=== PATIENT | male | born 1940 | race Caucasian/White ===

== ENCOUNTER → 2017-07-09 | Outpatient (CLI) | payer MEDICARE, BC ==
[~2017-07-09] MED LIST: ATOR10TA PO; TAMS0.4C2 PO; VALS40TA2 PO
[2017-07-09 09:24] LABS: BASOPHILS # (AUTO) 0.01 x10^3/uL (0-0.1); BASOPHILS % (AUTO) 0 % (0-1); EOSINOPHILS % (AUTO) 2 % (1-7); LYMPHOCYTES % (AUTO) 10 % (22-44); MD NO; MEAN CORPUSCULAR HEMOGLOBIN 31.8 pg (27.5-34.5); MEAN CORPUSCULAR VOLUME 93.8 fL (81-97); MEAN PLATELET VOLUME 7.5 fL (7.4-10.4); MONOCYTES # (AUTO) 0.58 x10^3/uL (0.2-0.8); MONOCYTES % (AUTO) 15 % (2-9); NEUTROPHILS # (AUTO) 2.83 x10^3/uL (1.8-6.8); NEUTROPHILS % (AUTO) 72 % (42-75); PLATELET COUNT 210 x10^3/uL (130-400); RED BLOOD COUNT 4.87 x10^6/uL (4.38-5.82); RED CELL DISTRIBUTION WIDTH 12.9 % (9.4-14.8)
[2017-07-09 09:25] LABS: MICROSCOPIC AUTO
[2017-07-09 09:26] LABS: CULTURE INDICATED? NO
[2017-07-09 09:33] LABS: INTERNATIONAL NORMALIZED RATIO 0.96 (0.93-1.1); PROTHROMBIN TIME 9.9 Seconds (9.6-11.5)
[2017-07-09 09:35] LABS: ANION GAP 4 mmol/L (5-15); CALCIUM 9.7 mg/dL (8.5-10.1); CHLORIDE 104 mmol/L (98-107); CREATININE 0.82 mg/dL (0.7-1.3)
== END | disposition home or self-care (01) ==
LOC: STAR 08:03
PROVIDERS: ATTEND Neurological Surgery
DX: Z01.818 Encounter for other preprocedural examination (principal); M47.12 Other spondylosis with myelopathy, cervical region; M43.5X2 Other recurrent vertebral dislocation, cervical region
CPT/HCPCS: 36415; 71020; 72052; 80048; 81001; 85025; 85610; 85730

== ENCOUNTER 2017-07-23 12:51 | Observation (INO) | payer MEDICARE, BC ==
[2017-07-09 10:30] VITALS: BP 167/93
[~2017-07-23] VITALS: Ht 182.9 cm; Wt 84.0 kg
[~2017-07-23 12:51] MED LIST changes: +BACITRACIN 50,000 UNIT ONE; +BUPIVACAINE/PF 0.5% ONE; +EPINEPHRINE 1 MG/ML, 1ML ONE; +THROMBIN 5,000 UNIT VIAL TP ONE
[2017-07-23] MEDS ORDERED: AMLO10TA2 PO (13:18)
[2017-07-23] MEDS ORDERED: LACTATED RINGERS 1,000 ML IV SCH (13:34)
[2017-07-23] MEDS ORDERED: FENTANYL PF 100 MCG/2ML ONE ×2 (18:14)
[2017-07-23] MEDS ORDERED: MIDAZOLAM 1 MG/ML, 2ML ONE (18:14)
[2017-07-23] MEDS ORDERED: CEFAZOLIN 1,000 MG ONE (19:52)
[2017-07-23] MEDS ORDERED: DEXAMETHASONE 4 MG/ML, 1ML ONE (19:52)
[2017-07-23] MEDS ORDERED: SUCCINYLCHOLINE 20 MG/ML, 10ML ONE (19:52)
[2017-07-23] MEDS ORDERED: ONDANSETRON 2MG/ML, 2ML ONE (19:52)
[2017-07-23] MEDS ORDERED: PROPOFOL 10 MG/ML, 20ML ONE (19:52)
[2017-07-23] MEDS ORDERED: ROCURONIUM 10 MG/ML,10ML ONE (19:52)
[2017-07-23] MEDS ORDERED: ONDANSETRON 2MG/ML, 2ML IVPush PRN ×2 (20:00→20:30)
[2017-07-23] MEDS ORDERED: OXYcodone 5 MG/5 ML ORAL.SOL UDC PO PRN (20:00)
[2017-07-23] MEDS ORDERED: ALBUTEROL SULFATE 2.5 MG/3 ML NPPB PRN (20:00)
[2017-07-23] MEDS ORDERED: LABETALOL 5MG/ML, 20ML IV PRN (20:00)
[2017-07-23] MEDS ORDERED: PROMETHAZINE 25 MG/ML, 1ML IV PRN (20:00)
[2017-07-23] MEDS ORDERED: DIAZEPAM 5 MG/ML, 2ML IVPush PRN (20:00)
[2017-07-23] MEDS ORDERED: ACETAMINOPHEN 325 MG TABLET PO PRN (20:00)
[2017-07-23] MEDS ORDERED: MEPERIDINE/PF 25MG/0.5ML IVPush PRN (20:00)
[2017-07-23] MEDS ORDERED: HYDROcodone/APAP 7.5-325MG/15ML UDC PO PRN (20:00)
[2017-07-23] MEDS ORDERED: FENTANYL PF 100 MCG/2ML IV PRN (20:00)
[2017-07-23] MEDS ORDERED: EPHEDRINE 50 MG/ML, 1ML IVPush PRN (20:00)
[2017-07-23] MEDS ORDERED: MIDAZOLAM 1 MG/ML, 2ML IV PRN (20:00)
[2017-07-23] MEDS ORDERED: METOPROLOL 1 MG/ML, 5ML IV PRN (20:00)
[2017-07-23] MEDS ORDERED: DIAZEPAM 5 MG TABLET PO PRN (20:30)
[2017-07-23] MEDS ORDERED: HYDROmorphone 1 MG/ML, 1ML IVPush PRN (20:30)
[2017-07-23] MEDS ORDERED: PHARMACY MAY ADJ FOR RENAL FX MC PRN (20:30)
[2017-07-23] MEDS ORDERED: OXYcodone/APAP 5/325MG TABLET PO PRN (20:30)
[2017-07-23] MEDS ORDERED: DIPHENHYDRAMINE 50 MG/ML, 1ML IVPush PRN (20:30)
[2017-07-23] MEDS ORDERED: BISACODYL 10 MG SUPP PR PRN (20:30)
[2017-07-23] MEDS ORDERED: MAGNESIUM HYDROXIDE 8%, 30ML UDC PO PRN (20:30)
[2017-07-23] MEDS ORDERED: PROMETHAZINE 25 MG/ML, 1ML IM PRN (20:30)
[2017-07-23] MEDS ORDERED: ACETAMINOPHEN 650 MG/20.3 ML UDC ONE (20:42)
[2017-07-23] MEDS ORDERED: OXYcodone 5 MG/5 ML ORAL.SOL UDC ONE (20:42)
[2017-07-23] MEDS ORDERED: hydrALAzine 20 MG/ML, 1ML ONE (20:46)
[2017-07-23] MEDS: hydrALAzine 20 MG/ML, 1ML IV PRN ×2 (20:47→21:15)
[2017-07-23] MEDS: SODIUM CHLORIDE FLUSH 10ML SYR IVF SCH (21:00)
[2017-07-23] MEDS ORDERED: ATORVASTATIN 10 MG TABLET PO SCH (21:00)
[2017-07-23] MEDS ORDERED: HYDROmorphone 2 MG/ML, 1ML ONE (21:17)
[2017-07-23] MEDS: HYDROmorphone 1 MG/ML, 1ML IV PRN ×2 (21:20→21:26)
[2017-07-23] MEDS: CEFAZOLIN PMX 1GM/50ML 50 ML IVPB SCH (22:36)
[2017-07-23] MEDS: TIZANIDINE 4MG TABLET PO SCH (22:37)
[2017-07-23] MEDS: NS + 20MEQ KCL 1,000 ML IV SCH (22:37)
[2017-07-24 03:52] VITALS: BP 123/59
[2017-07-24] MEDS: TIZANIDINE 4MG TABLET PO SCH (05:44)
[2017-07-24] MEDS: CEFAZOLIN PMX 1GM/50ML 50 ML IVPB SCH (05:44)
[2017-07-24 08:00] VITALS: BP 139/67
[2017-07-24] MEDS ORDERED: SENNA/DOCUSATE TABLET PO SCH (09:00)
[2017-07-24] MEDS ORDERED: TAMSULOSIN 0.4 MG CAP.ER.24H PO SCH (09:00)
[2017-07-24] MEDS ORDERED: VALSARTAN 80 MG TABLET PO SCH (09:00)
[2017-07-24] MEDS ORDERED: AMLODIPINE 5 MG TABLET PO SCH (09:00)
[2017-07-24] MEDS: SODIUM CHLORIDE FLUSH 10ML SYR IVF SCH (09:13)
[2017-07-24] MEDS: NS + 20MEQ KCL 1,000 ML IV SCH (10:56)
[2017-07-24] MEDS ORDERED: TIZA2TAB PO (12:49)
[2017-07-24] MEDS ORDERED: OXYC-302 PO (12:55)
== END 2017-07-24 13:11 | disposition home or self-care (01) ==
LOC: OUT 12:51 → 4NOR 21:53 → OUT 21:55 → 4NOR 21:56 → DCLOUNGE 07-24 12:55
PROVIDERS: ADMIT Neurological Surgery; ATTEND Neurological Surgery
DX: M48.02 Spinal stenosis, cervical region (principal); M47.12 Other spondylosis with myelopathy, cervical region; I35.0 Nonrheumatic aortic (valve) stenosis; I10 Essential (primary) hypertension; E78.5 Hyperlipidemia, unspecified; R26.9 Unspecified abnormalities of gait and mobility; R20.2 Paresthesia of skin; E78.00 Pure hypercholesterolemia, unspecified; I95.9 Hypotension, unspecified; Z87.891 Personal history of nicotine dependence; Z85.46 Personal history of malignant neoplasm of prostate
CPT/HCPCS: 63045; 72040; 95938; 95941; 96365; 96375; 97162; 97165; C1713; G0378; J0171; J0330; J0360; J0690; J1100; J1170; J2250; J2405; J2704; J3010; J3480; J3490; J7120